=== PATIENT | female | born 1995 | race Caucasian/White ===

== ENCOUNTER 2017-08-07 13:47 | Inpatient (IN) ==
[2017-08-07 14:26] VITALS: BMI 38.7
[2017-08-07] MEDS ORDERED: LABETALOL 20mg/4ml INJECTION IVP PRN (14:33)
[2017-08-07] MEDS ORDERED: MAGNESIUM SULFATE 6gm PREMIX 6 GM/50 ML BAG IV ONE (14:33)
[2017-08-07] MEDS ORDERED: CALCIUM GLUCONATE 4.65mEq/10ml INJECTION IV PRN (14:33)
[2017-08-07] MEDS ORDERED: CITRIC ACID/SODIUM CITRATE 30ml PO PRN (14:33)
[2017-08-07] MEDS ORDERED: LIDOCAINE 1% (10mg/ml) 2mL INJ PF SDV ID PRN (14:33)
[2017-08-07] MEDS ORDERED: BETAMETHASONE 30 MG/5 ML INJECTION IM ONE (14:38)
[2017-08-07] MEDS: LR 1,000 ML IV SCH (14:46)
[2017-08-07] MEDS: MAGNESIUM SULFATE DRIP 20 GM/500 ML BAG IV SCH (15:17)
--- NOTE | 2017-08-07 15:26 | Anesthesia Preoperative Report ---
Anesthesia Epidural/Spinal Rec - Date and Time Date: 08/07/17 Preoperative Diagnosis: 35wk HTN Procedure: Labor Epidural Plan: Epidural - Vital Signs /Para: G: P: - Medictaions & Allergies Inpatient Medications: Current Medications Calcium Gluconate (Calcium Gluconate) 4.65 meq IV O PRN Citric Acid/Sodium Citrate (Oracit) 30 ml PO Q2H PRN Lactated Ringer's (Lactated Ringers) 1,000 mls @ 100 mls/hr IV .Q10H MARILU Last Admin: 08/07/17 14:46 Dose: 100 mls/hr Magnesium Sulfate (Mag Sulf 6gm Premix) 6 gm in 50 mls @ 150 mls/hr IV O ONE Stop: 08/07/17 14:52 Last Admin: 08/07/17 14:53 Dose: 150 mls/hr Magnesium Sulfate (Magnesium Sulfate Drip) 20 gm in 500 mls @ 50 mls/hr IV .Q10H MARILU PRN Reason: 2 G/HR Last Admin: 08/07/17 15:17 Dose: 2 g/hr, 50 mls/hr Labetalol HCl (Trandate) 20 mg IVP Q10M PRN Last Admin: 08/07/17 14:46 Dose: 20 mg Lidocaine HCl (Xylocaine-Mpf 1% Vial) 1 mg ID PRN PRN PRN Reason: IV Start Allergies/Adverse Reactions: Allergies Allergy/AdvReac Type Severity Reaction Status Date / Time No Known Allergies Allergy Unverified 12/10/15 04:43 - Home Medications Home Medications: Home Medications Medication Instructions Recorded Confirmed Type NO KNOWN MEDICATIONS #0 12/10/15 History - Medical History Cardiovascular: Reports: Hypertension - Surgical History Anesthesia Reactions: None Hx Family Anesthesia Reaction: No History of Motion Sickness: No - Social History Smoking Status: Never smoker Second Hand Exposure: No Substance Use Type: does not use Alcohol Intake Frequency: does not drink Hx Chewing Tobacco Use: No - Pertinent Findings Lab Data: CBC and BMP 08/07/17 14:18 08/07/17 14:18 BMP 08/07/17 14:18 Sodium 141 Potassium 4.3 Chloride 108 H Carbon Dioxide 22 BUN 7.0 Creatinine 0.5 L Glucose 108 Calcium 9.4 Liver Function 08/07/17 Range/Units 14:18 Total Bilirubin < 0.10 L (0.20-1.30) MG/DL AST 16 (14-36) U/L ALT 32 (9-52) U/L Alkaline Phosphatase 173 H (38-126) U/L Albumin 3.6 (3.5-5.0) G/DL - Physical Exam Respiratory Exam: lungs clear Cardiovascular Exam: regular rate and rhythm - Airway Assessment Mallampati Score: II TMD: 3 Fingerbreadths Neck Extension: fair Overall Assessment: no airway concerns - ASA ASA Score: 2 - Discussion Discussion: Discussed risks/options/alternatives of anesthesia and questions answered. Patient consents. Nursing pain assessment noted. Anesthesia Discussion: spouse Attestation Statement: Prior to the delivery of any anesthetic medication, I examined the patient, developed the plan, obtained the patient's consent and discussed the risk and benefits of the procedure with the patient/guardian.
--- NOTE | 2017-08-07 17:48 | OB/GYN History & Physical ---
- History of Present Illness Date of Admission: 08/07/17 14:32 Reason for Admission: other History of Present Illness: 22 y/o presented to office for routine ob visit and with elevated BP, complaints of edema, Denies LITTLE/Vision changes/or RUQ pain. Has been on ASA 81 MG this for preeclampsia prevention. Pt had elevated BP early in diagnosed with CHTN and negative eval. Expected Date of Delivery: 09/07/17 : 1 Para: 0 Review of Systems - Constitutional Constitutional: Present: as per HPI. Absent: headache(s) - Cardiovascular Cardiovascular: Absent: chest pain, dyspnea on exertion - Respiratory Respiratory: Absent: cough, dyspnea - Gastrointestinal Gastrointestinal: Absent: abdominal pain - Genitourinary Genitourinary: Absent: abnormal vaginal bleeding Menstruation: Present: as per HPI - Musculoskeletal Musculoskeletal: Absent: back pain - Neurological Neurological: Present: as per HPI PFS Patient Stated Medical History Hypertension Yes - Social History Smoking status: Never smoker second hand exposure: No Substance use type: does not use Alcohol intake frequency: does not drink Does patient use chewing tobacco?: No Medications Home Medications Medication Instructions Recorded Confirmed Type NO KNOWN MEDICATIONS #0 12/10/15 History Allergies Allergy/AdvReac Type Severity Reaction Status Date / Time No Known Allergies Allergy Unverified 12/10/15 04:43 Exam Vital signs: Intake and Output 08/07/17 08/07/17 08/07/17 06:59 14:59 22:59 Intake Total 50 / 50 Balance 50 / 50 Intake: IV 50 / 50 MAGNESIUM SULFATE 6gm PREMIX 6 50 / 50 gm In 50 ml @ 150 mls/hr IV O ONE Rx#:[id number] Other: Weight 99.155 kg Patient Weight 08/08/17 06:59 Weight 99.155 kg BP on eval all over severe range, 20 mg labetolol and BP have been in mild range since. Remainder VS stable - Constitutional Present: no acute distress - Neck Exam Present: supple - Respiratory Exam Present: CTA bilaterally - Cardiovascular Exam Present: RRR - Abdominal Exam Present: soft Comments: Gravid - Extremities Exam Extremities: Present: edema - Neurological Exam Present: alert, oriented X3 - Skin Exam Present: intact - Psychiatric Exam Present: normal affect - Additional findings Cervical exam Cl/TH/High. Vtx by exam. ECONOMICS FACULTY MEMBER Results - Labs CBC & Chem 7: 08/07/17 14:18 08/07/17 14:18 Labs: Spot pr/cr ratio c/w with 853 protein. Antepartum Assessment and Plan (1) Pre-eclampsia complicating , with pre-existing hypertension, with delivery, current hospitalisation Problem details: Severe preeclampsia SI on CHTN, at [id number]. MGSO4, Antihypertensive meds as needed. Cervical ripening with IOL. GBS collected, ANCS given. R/B/A to IOL and MGSO4 discussed with pt. Current visit: Yes Status: Acute
[2017-08-07] MEDS ORDERED: DINOPROSTONE 10 MG VAGINAL INSERT VG ONE (17:51)
[2017-08-07] MEDS ORDERED: TERBUTALINE 1 MG/ML VIAL SQ PRN (17:51)
[2017-08-08] MEDS: ACETAMINOPHEN 500 MG TABLET PO PRN ×2 (00:53→08:09)
[2017-08-08] MEDS: MAGNESIUM SULFATE DRIP 20 GM/500 ML BAG IV SCH ×3 (01:19→21:52)
[2017-08-08] MEDS: LR 1,000 ML IV SCH ×2 (03:07→13:13)
[2017-08-08] MEDS ORDERED: OXYTOCIN DRIP 30 UNIT/500 ML ML IV PRN (07:36)
[2017-08-08] MEDS ORDERED: D5LR 1,000 ML IV PRN (07:36)
[2017-08-08] MEDS ORDERED: ROPIVACAINE 1% 10MG/ML INJ 200 MG, SUFentanil 50 MCG in NS 100 ML EPI PRN (11:36)
[2017-08-08] MEDS ORDERED: DiphenhydrAMINE 50 MG/ML INJECTION IVP PRN (11:36)
[2017-08-08] MEDS ORDERED: ONDANSETRON 4 MG/2 ML INJECTION IVP PRN ×2 (11:36→23:09)
[2017-08-08] MEDS ORDERED: NALOXONE 0.4 MG/ML INJECTION IVP PRN (11:36)
[2017-08-08] MEDS ORDERED: BETAMETHASONE 30 MG/5 ML INJECTION IM ONE (14:50)
[2017-08-08] MEDS ORDERED: AZITHROMYCIN IV 500 MG in NS 250ml 250 ML IV ONE (21:43)
[2017-08-08] MEDS ORDERED: NOZIN NASAL SWAB NAS ONE ×2 (21:43)
[2017-08-08] MEDS ORDERED: CITRIC ACID/SODIUM CITRATE 30ml PO ONE (21:45)
[2017-08-08] MEDS ORDERED: FAMOTIDINE PB 20 MG/50 ML BAG IV ONE (21:45)
[2017-08-08] MEDS ORDERED: CEFAZOLIN PREMIX (MC ONLY) 2 GM/50 ML BAG IV ONE (21:45)
[2017-08-08] MEDS ORDERED: MORPHINE SULFATE 10 MG/ML VIAL ONE (22:17)
[2017-08-08] MEDS ORDERED: MORPHINE SULFATE PF 5mg/10ml INJ (Duramorph) ONE (22:17)
[2017-08-08] MEDS ORDERED: ONDANSETRON 4 MG/2 ML INJECTION ONE (22:17)
[2017-08-08] MEDS ORDERED: LIDOCAINE 1.5% W/EPI 1:200,000 30ml SDV PF ONE (22:19)
[2017-08-08] MEDS ORDERED: OXYTOCIN BOLUS BAG 30 UNIT/500 ML ML IV SCH (22:45)
[2017-08-08] MEDS ORDERED: EPHEDRINE 50mg/ml INJECTION ONE (22:48)
[2017-08-08] MEDS ORDERED: NALOXONE 2 MG/2 ML INJECTION PFS IVP PRN (23:09)
[2017-08-08] MEDS ORDERED: CALCIUM CARBONATE Chewable 500mg TABLET PO PRN (23:20)
[2017-08-08] MEDS ORDERED: DiphenhydrAMINE 25 MG CAPSULE PO PRN (23:20)
[2017-08-08] MEDS ORDERED: SIMETHICONE 80 MG CHEWABLE TABLET PO PRN (23:20)
[2017-08-08] MEDS ORDERED: HYDROCORTISONE 2.5% CREAM 30gm RECTALLY PRN (23:20)
[2017-08-08] MEDS ORDERED: OXYTOCIN DRIP 30 UNIT/500 ML ML IV SCH (23:30)
[2017-08-08] MEDS ORDERED: D5LR 1,000 ML IV SCH (23:30)
[2017-08-09] MEDS: HYDROCODONE/APAP 5mg/325mg TABLET PO PRN ×4 (01:06→21:33)
[2017-08-09] MEDS: NOZIN NASAL SWAB NAS SCH ×3 (04:52→21:14)
[2017-08-09] MEDS: MAGNESIUM SULFATE DRIP 20 GM/500 ML BAG IV SCH (09:30)
--- NOTE | 2017-08-09 09:31 | OB/GYN Progress Note ---
OB-PP Progress Note - General PPD1 Maternal Group B Strep: Negative Maternal blood type: A+ Maternal Rubella Status: Immune - Subjective Date: 08/09/17 Lochia: Minimal Pain: controlled Voiding: cotter still in place - Objective Vital Signs: Last Vital Signs Temp 98.1 F 08/09/17 08:00 Pulse 67 08/09/17 09:18 Resp 16 08/09/17 09:18 BP 141/71 H 08/09/17 09:18 Pulse Ox 99 08/09/17 09:18 General: alert and oriented Respiratory: non-labored Abdomen: fundus firm, non-tender Incision: normal, clean, intact Extremities: non-tender Laboratory: Laboratory Results - last 24 hr 08/07/17 08/08/17 08/08/17 14:18 14:27 14:27 WBC 13.7 H RBC 4.07 Hgb 11.5 L Hct 34.6 L MCV 85.0 MCH 28.3 MCHC 33.2 RDW Std Deviation 41.7 Plt Count 109 L MPV 12.1 Immature Gran % (Auto) 0.5 Neut % (Auto) 81.0 H Lymph % (Auto) 10.2 L [place] % (Auto) 8.2 Eos % (Auto) 0.0 Baso % (Auto) 0.1 Neut # (Auto) 11.1 H Lymph # (Auto) 1.4 [place] # (Auto) 1.1 H Eos # (Auto) 0.0 Baso # (Auto) 0.0 Abs Immat Gran (auto) 0.07 H Turbidity < 20 Sodium 137 Potassium 4.2 Chloride 106 Carbon Dioxide 20 L Anion Gap 11 BUN 4.0 L Creatinine 0.5 L GFR Calculation 156 BUN/Creatinine Ratio 8 Glucose 104 Calculated Osmolality 261 Calcium 7.3 L Total Bilirubin 0.20 Icterus Index < 2 AST 15 ALT 25 Alkaline Phosphatase 187 H Total Protein 6.5 Albumin 3.3 L Globulin 3.2 Albumin/Globulin Ratio 1.0 L Specimen Hemolysis < 15 Blood Type A Positive Antibody Screen Negative 08/09/17 08/09/17 05:32 05:32 WBC 19.1 H RBC 3.85 L Hgb 10.9 L Hct 33.1 L MCV 86.0 MCH 28.3 MCHC 32.9 RDW Std Deviation 41.9 Plt Count 122 L MPV 12.9 H Immature Gran % (Auto) Neut % (Auto) Lymph % (Auto) [place] % (Auto) Eos % (Auto) Baso % (Auto) Neut # (Auto) Lymph # (Auto) [place] # (Auto) Eos # (Auto) Baso # (Auto) Abs Immat Gran (auto) Turbidity < 20 Sodium 137 Potassium 4.6 Chloride 107 Carbon Dioxide 23 Anion Gap 7 BUN 4.0 L Creatinine 0.5 L GFR Calculation 156 BUN/Creatinine Ratio 8 Glucose 125 H Calculated Osmolality 262 Calcium 7.3 L Total Bilirubin < 0.10 L Icterus Index < 2 AST 19 ALT 19 Alkaline Phosphatase 177 H Total Protein 6.3 Albumin 3.3 L Globulin 3.0 Albumin/Globulin Ratio 1.1 Specimen Hemolysis < 15 Blood Type Antibody Screen - Assessment (1) Pre-eclampsia complicating , with pre-existing hypertension, with delivery, current hospitalisation Comment: Severe preeclampsia SI on CHTN. Continue magnesium until 24 hours PP. Status: Acute (2) Gestational thrombocytopenia without hemorrhage in third trimester Comment: Stable Status: Acute - Assessment Assessment: Primary C/S
[2017-08-09] MEDS: DOCUSATE CALCIUM 240 MG CAPSULE PO SCH (10:05)
[2017-08-09] MEDS: SIMETHICONE 80 MG CHEWABLE TABLET PO SCH ×3 (10:05→18:36)
--- NOTE | 2017-08-09 20:13 | Operative Note ---
DATE OF DELIVERY 08/08/2017 PREOPERATIVE DIAGNOSES 1. 22-year-old 1 at 35 weeks 5 days gestational age. 2. Chronic hypertension with superimposed severe preeclampsia. 3. Arrest of dilation and descent. POSTOPERATIVE DIAGNOSES 1. 22-year-old 1 at 35 weeks 5 days gestational age. 2. Chronic hypertension with superimposed severe preeclampsia. 3. Arrest of dilation and descent. PROCEDURE Primary low transverse section. SURGEON Dr. Jeana Carranza CANTEEN ATTENDANT Carlos Mccoy, Button Cutting Machine Operator ANESTHESIA Epidural by Paulo Willams CRNA COMPLICATIONS None. EBL 600 mL. FINDINGS Viable male , cephalic OT position with the caput on the side of the baby' s head. Clear fluids. Apgars 6/8, weight 2928 grams, name "Gm." Normal-appearing uterus, tubes and ovaries. INDICATIONS Rochelle came to the office on 08/07/2017 for an OB check and biophysical profile. Her blood pressures were found to be elevated so she was sent to Maternal/Child. Her blood pressures were elevated in the severe range so she was started on magnesium and given a dose of labetalol. She also received two doses of betamethasone prior to delivery. Cervidil was placed overnight for ripening. The next morning she was only 1 cm dilated so I attempted to place a Cabezas balloon through her cervix for further ripening. Her membranes were accidentally ruptured during this process so I did not place the Cabezas. She was also started on Pitocin. She received an epidural. An IUPC was placed to help titrate contractions. At one point we got up to 34 milliunits of Pitocin. We struggled to stay in a good contraction pattern due to the effects of magnesium. She only got to 4.5 cm dilation and -2 station. She did not progress past that in eight hours so she was consented for a section. PROCEDURES The patient was taken to the operating room where her anesthesia was brought up to adequate surgical levels. She already had a Cabezas catheter in place. Her IUPC was removed. She was prepared and draped in the normal sterile fashion. A Pfannenstiel skin incision was made and carried down to the fascia. The fascia was incised in the midline and extended laterally with the Huang scissors. The fascia was elevated and the underlying rectus muscles were dissected off. The peritoneum was entered bluntly. This was extended superiorly and inferiorly with good visualization of the bladder. The bladder blade was inserted. A bladder flap was created sharply and the bladder blade was reinserted. The lower uterine segment was incised in a transverse fashion layer by layer with a scalpel and bluntly extended. We encountered the lower edge of the placenta. The 's head was delivered atraumatically. The nose and mouth were suctioned. The cord was clamped and cut. The infant was handed to Dr. Armstrong who was asked to attend due to both the prematurity and the severe preeclampsia. The placenta delivered spontaneously. The uterus was exteriorized and cleared of all clots and debris. The uterine incision was closed with running, locked 0-Monocryl. There was a small hematoma developing below the left lower edge of the incision. The incision was imbricated with a second layer of 0-Monocryl. There was no further expansion of the hematoma. Hemostasis was obtained on the serosal edges with the cautery. The bladder flap was closed with running 3-0 Vicryl. The uterus was returned to the abdomen. The gutters were cleared of all clots and debris. The uterine incision was inspected one final time and still noted to be hemostatic. The peritoneum was closed with running 2-0 Vicryl. Hemostasis was obtained in the rectus muscles with the cautery. The fascia was closed with 0-Vicryl. Subcutaneous tissue was inspected and hemostasis was obtained with the cautery. Samuel's fascia was closed with running 2-0 chromic. The skin was closed with 4-0 Vicryl in a subcuticular manner. Steri-Strips were placed. Sponge, sharp and instrument counts were correct. The patient tolerated the procedure well and was taken to the recovery room in good condition. DMITRI
[2017-08-10] MEDS: SIMETHICONE 80 MG CHEWABLE TABLET PO SCH ×4 (01:26→17:26)
[2017-08-10] MEDS: HYDROCODONE/APAP 5mg/325mg TABLET PO PRN ×4 (01:26→13:20)
[2017-08-10] MEDS: NOZIN NASAL SWAB NAS SCH ×3 (01:32→13:19)
[2017-08-10] MEDS: DOCUSATE CALCIUM 240 MG CAPSULE PO SCH (09:11)
--- NOTE | 2017-08-10 09:59 | OB/GYN Progress Note ---
OB-PP Progress Note - General PPD2 Maternal Group B Strep: Negative Maternal blood type: A+ Maternal Rubella Status: Immune - Subjective Date: 08/10/17 Lochia: Minimal Pain: controlled Voiding: voiding Subjective Comments: Feeling better since the mag was stopped last PM. Baby is still in SCN. - Objective Vital Signs: Last Vital Signs Temp 98.4 F 08/10/17 03:36 Pulse 117 H 08/10/17 09:19 Resp 20 08/10/17 09:19 BP 151/103 H 08/10/17 09:19 Pulse Ox 99 08/10/17 09:19 Urine Output: good General: alert and oriented Abdomen: fundus firm, non-tender Incision: clean, no erythema, dry, intact Extremities: non-tender Pertinent Findings: The nurses have noticed that her BPs are higher when she has more company present. - Assessment (1) Status post primary low transverse section Status: Acute (2) Pre-eclampsia complicating , with pre-existing hypertension, with delivery, current hospitalisation Comment: Severe preeclampsia SI on CHTN. Resolving. Diuresing well. Status: Acute (3) Gestational thrombocytopenia without hemorrhage in third trimester Comment: Stable Status: Acute - Plan Plan: routine care
--- NOTE | 2017-08-10 17:06 | Anesthesia Postoperative Note ---
- Date and Time Date: 08/10/17 Time: 17:05 - Status Patient Participated in Evaluation: Patient Participated in Person Vital Signs: Temperature 97.9 F 08/10/17 16:00 Pulse Rate 94 08/10/17 16:00 Respiratory Rate 16 08/10/17 16:00 Blood Pressure 155/88 H 08/10/17 16:00 Pulse Oximetry 98 08/10/17 16:00 Respiratory Function: Airway Patent Cardiovascular Function: Regular Pulse EKG: Sinus Rhythm Mental Status: Alert and Oriented Pain Intensity: 2 Hydration: Taking PO Fluids Complications During Recover: None Apparent - Follow-Up Instructions Instructions: Per Surgeon
[2017-08-10] MEDS: HYDROCODONE/APAP 7.5 MG/325 MG TABLET PO PRN ×2 (17:25→22:02)
[2017-08-11] MEDS: HYDROCODONE/APAP 7.5 MG/325 MG TABLET PO PRN ×5 (03:13→19:46)
--- NOTE | 2017-08-11 08:11 | OB/GYN Progress Note ---
OB-PP Progress Note - General POD:: POD3 Maternal Group B Strep: Negative Maternal blood type: A+ Maternal Rubella Status: Immune - Subjective Date: 08/11/17 Lochia: Minimal Pain: controlled Voiding: voiding Nausea or Vomiting Present: No - Objective Vital Signs: Last Vital Signs Temp 97.8 F 08/11/17 03:49 Pulse 78 08/11/17 03:49 Resp 16 08/11/17 03:49 BP 147/90 H 08/11/17 03:49 Pulse Ox 95 08/11/17 03:49 Urine Output: good General: alert and oriented Abdomen: fundus firm Incision: clean, dry, intact Extremities: non-tender - Assessment (1) Pre-eclampsia complicating , with pre-existing hypertension, with delivery, current hospitalisation Comment: Severe preeclampsia SI on CHTN. Resolving. Diuresing well. Status: Acute (2) Gestational thrombocytopenia without hemorrhage in third trimester Comment: Stable Status: Acute (3) Status post primary low transverse section Status: Acute - Plan Plan: other (dism to boarding)
[2017-08-11] MEDS: DOCUSATE CALCIUM 240 MG CAPSULE PO SCH (11:29)
[2017-08-11] MEDS: SIMETHICONE 80 MG CHEWABLE TABLET PO SCH ×3 (11:29→18:43)
[2017-08-11] MEDS: NOZIN NASAL SWAB NAS SCH ×2 (11:30→14:38)
[2017-08-11 12:00] VITALS: RESP 18; O2SAT 111
[2017-08-11 17:28] VITALS: BP 141/89; PULSE 97; TEMP 98.4
== END 2017-08-11 19:50 | disposition home or self-care (01) | DRG 765 ==
LOC: OBOBS 13:47 → MC 13:51
PROVIDERS: ADMIT Obstetrics & Gynecology; ATTEND Obstetrics & Gynecology